=== PATIENT | male | born 1950 | race Caucasian/White ===

== ENCOUNTER 2020-08-17 12:29 | Emergency (ER) | payer OTHER, MEDICAID ==
[~2020-08-17] VITALS: Ht 172.7 cm; Wt 72.6 kg
[2020-08-17 12:31] VITALS: BP 146/91; Ht 172.7 cm; Wt 72.6 kg
[2020-08-17] MEDS ORDERED: CARAFATE1 GM/10 ML PO (12:57)
[2020-08-17] MEDS ORDERED: CEPACOL SORE TH1 LO4 PO (12:57)
== END 2020-08-17 13:19 | disposition home or self-care (01) ==
LOC: ED 12:29
DX: R13.10 Dysphagia, unspecified (principal); K21.9 Gastro-esophageal reflux disease without esophagitis; Z90.89 Acquired absence of other organs; Z98.890 Other specified postprocedural states